=== PATIENT | female | born 1965 | race Caucasian/White ===

== ENCOUNTER → 2016-06-17 | Outpatient (CLI) | payer BC ==
--- NOTE | 2016-06-17 14:49 | XR ---
EXAMINATION TYPE: XR chest 2V DATE OF EXAM: 06/17/2016 12:08 PM COMPARISON: Prior chest x-ray January 2016 HISTORY: Shortness of breath TECHNIQUE: Frontal and lateral views of the chest are obtained. FINDINGS: There is no pleural effusion, or pneumothorax seen. The cardiac silhouette size is within normal limits. Spinal curvature present in the thoracic spine as on previous exam. Biapical pleural thickening is present. Prominent lung volumes are again noted. Question retrosternal density on the l ateral view. The osseous structures are intact. IMPRESSION: Retrosternal density could be related to airspace disease, chest CT could be performed f or increased sensitivity.
== END | disposition home or self-care (01) ==
LOC: RADXRMAIN 11:53
PROVIDERS: ATTEND Family Medicine
DX: R91.8 Other nonspecific abnormal finding of lung field (principal)
CPT/HCPCS: 71020

== ENCOUNTER → 2016-07-08 | Outpatient (CLI) | payer BC ==
--- NOTE | 2016-07-08 09:37 | CT ---
EXAMINATION TYPE: CT chest w con DATE OF EXAM: 07/08/2016 9:28 AM COMPARISON: NONE HISTORY: SOB and f/u to abnormal CXR CT DLP: 231.1 mGycm Automated exposure control for dose reduction was used. CONTRAST: CT scan of the chest is performed with IV Contrast, patient injected with 100 mL of Omnipaque 300. FINDINGS: LUNGS: Scattered areas of patchy infiltrate left upper lobe may reflect pneumonia in the appropriate clinical setting. Follow up until resolution is advised. Scattered areas of groundglass density right upper lobe and mild right upper lobe pleural thickening. No evidence of pleural effusion. MEDIASTINUM: Bilateral hilar lymph nodes measure approximately 1 cm. No evidence for greater than 1 c m mediastinal adenopathy. Calcified right paratracheal lymph node detected. Small pericardial effusio n measuring 5.2 mm. Thoracic aorta is of normal caliber. The heart is not enlarged. UPPER ABDOMEN: No significant abnormality appreciated. OTHER: No additional significant abnormality is seen. IMPRESSION: 1. Correlate for left upper lobe pneumonia. Follow-up until resolution is advised to exclude other po ssibilities. Strict clinical correlation advised. 2 mild hilar lymph node prominence is nonspecific. 3. Small pericardial effusion.
== END | disposition home or self-care (01) ==
LOC: RADCTMAIN 08:52
PROVIDERS: ATTEND Family Medicine
DX: I31.3 Pericardial effusion (noninflammatory) (principal)
CPT/HCPCS: 71260; Q9967

== ENCOUNTER → 2016-12-13 | Outpatient (CLI) | payer BC ==
--- NOTE | 2016-12-13 15:46 | XR ---
Right RIBS HISTORY: Right rib pain, pleurodynia, R07.81 Correlation to chest x-ray 06/17/2016 5 views of the right RIBS There is a spinal curvature present as on prior exam. No pneumothorax or pleural effusion. Bone payroll examiner alization is maintained. No displaced rib fracture. IMPRESSION: Scoliosis. Consider bone scan for increased sensitivity as indicated.
== END | disposition home or self-care (01) ==
LOC: RADXRMAIN 14:12
PROVIDERS: ATTEND Family Medicine
DX: M41.9 Scoliosis, unspecified (principal); R07.81 Pleurodynia

== ENCOUNTER → 2017-03-22 | Outpatient (CLI) | payer BC ==
--- NOTE | 2017-03-22 09:24 | XR ---
EXAMINATION TYPE: XR chest 2V DATE OF EXAM: 03/22/2017 COMPARISON: 06/17/2016 INDICATION: COPD TECHNIQUE: Frontal and lateral views of the chest are obtained. FINDINGS: The heart size is normal. The pulmonary vasculature is normal. Minimal anterior basilar atelectasis is likely present. Suspicious enhancement otherwise identified.. Scoliosis is through the thoracic spine IMPRESSION: 1. Mild subsegmental atelectasis suspected in the anterior lung bases. 2. Scoliosis
[2017-03-22 09:50] LABS: Basophils % (A) 0 %; CH 30.3; CHCM 31.5; Eosinophils # (A) 0.1 k/uL (0-0.7); Eosinophils % (A) 1 %; HDW 2.07; HGB 14.7 gm/dL (11.4-16.0); Luc # (Auto) 0.07; Luc % (Auto) 1; Lymphocytes % (A) 7 %; MCH 30.3 pg (25.0-35.0); MCHC 31.3 g/dL (31.0-37.0); MCV 96.6 fL (80.0-100.0); Mean Platelet Volume 6.4; Monocytes # (A) 0.3 k/uL (0-1.0); Monocytes % (A) 2 %; Neutrophils # (A) 12.4 k/uL (1.3-7.7); Neutrophils % (A) 89 %; RBC 4.86 m/uL (3.80-5.40); RDW 13.2 % (11.5-15.5); WBC 13.9 k/uL (3.8-10.6); WBC (Perox) 12.95
[2017-03-22 10:03] LABS: ALT 35 U/L (9-52); AST 28 U/L (14-36); Alkaline Phosphatase 70 U/L (38-126); Anion Gap 11 mmol/L; Blood Urea Nitrogen 15 mg/dL (7-17); Calcium 9.7 mg/dL (8.4-10.2); Carbon Dioxide 26 mmol/L (22-30); Chloride 104 mmol/L (98-107); Glucose 100 mg/dL (74-99); Non-African American GFR(MDRD) >60 (>60 ml/min/1.73 sqM); Potassium 4.2 mmol/L (3.5-5.1); Sodium 141 mmol/L (137-145); Total Bilirubin 0.2 mg/dL (0.2-1.3); Total Protein 6.8 g/dL (6.3-8.2)
== END | disposition home or self-care (01) ==
LOC: RADXRMAIN 08:47
PROVIDERS: ATTEND Family Medicine
DX: J44.1 Chronic obstructive pulmonary disease with (acute) exacerbation (principal)
CPT/HCPCS: 36415; 71020; 80053; 85025

== ENCOUNTER → 2018-01-12 | Outpatient (CLI) | payer BC ==
--- NOTE | 2018-01-12 12:37 | XR ---
Left RIBS HISTORY: Pleurodynia 4 views of the left ribs correlated to chest x-ray 03/22/2017 Patient's scoliotic curvature is noted. There is no evident displaced rib fracture, bone mineralizati on is maintained. No evident displaced fracture. IMPRESSION: Scoliosis. Consider bone scan as indicated for occult injury.
== END | disposition home or self-care (01) ==
LOC: RADXRMAIN 12:12
PROVIDERS: ATTEND Family Medicine
DX: M41.9 Scoliosis, unspecified (principal)

== ENCOUNTER → 2019-05-31 | Outpatient (CLI) | payer BC ==
[2019-05-31 10:56] LABS: Basophils % (A) 0 %; Eosinophils # (A) 0.2 k/uL (0-0.7); Eosinophils % (A) 2 %; HCT 38.3 % (34.0-46.0); HGB 12.5 gm/dL (11.4-16.0); Lymphocytes # (A) 0.9 k/uL (1.0-4.8); Lymphocytes % (A) 13 %; MCH 30.9 pg (25.0-35.0); MCHC 32.7 g/dL (31.0-37.0); MCV 94.4 fL (80.0-100.0); Mean Platelet Volume 6.7; Monocytes # (A) 0.3 k/uL (0-1.0); Monocytes % (A) 4 %; Neutrophils # (A) 5.6 k/uL (1.3-7.7); Neutrophils % (A) 79 %; Platelet Count 343 k/uL (150-450); RBC 4.05 m/uL (3.80-5.40); RDW 13.3 % (11.5-15.5); WBC 7.1 k/uL (3.8-10.6)
[2019-05-31 10:59] LABS: Total Eosinophil Count 150 #EOS/uL (150-300)
[2019-05-31 17:36] LABS: Cat Epith & Dander IgE <0.10 kU/L; Dermato. farinae IgE <0.10 kU/L; Dog Dander IgE <0.10 kU/L
[2019-05-31 17:37] LABS: Cladosporian herbarum IgE <0.10 kU/L; Cockroach IgE <0.10 kU/L
[2019-05-31 17:38] LABS: Alternaria alternata IgE <0.10 kU/L; Aspergillus fumagatus IgE <0.10 kU/L; Birch IgE <0.10 kU/L; Maple (Box Elder) IgE <0.10 kU/L
[2019-05-31 17:39] LABS: Elm IgE <0.10 kU/L; Oak IgE <0.10 kU/L
[2019-05-31 17:40] LABS: Ragweed,Common IgE <0.10 kU/L
[2019-05-31 17:41] LABS: Red Top (Bentgrass) IgE 0.33 kU/L
== END | disposition home or self-care (01) ==
LOC: LABWHC1 10:12
PROVIDERS: ATTEND Internal Medicine
DX: J45.50 Severe persistent asthma, uncomplicated (principal)
CPT/HCPCS: 36415; 82785; 85008; 85025; 86003

== ENCOUNTER → 2019-10-24 | Outpatient (CLI) | payer BC | END | disposition home or self-care (01) | LOC: LABWHC1 09:10 | PROVIDERS: ATTEND Family Medicine | DX: Z11.59 Encounter for screening for other viral diseases (principal) | CPT/HCPCS: 87635 ==

== ENCOUNTER 2023-01-22 12:54 | Emergency (ER) | payer BC, MEDICARE ==
[2023-01-22 13:25] VITALS: BP 138/80; PULSE 80; RESP 18; TEMP 98.9
--- NOTE | 2023-01-22 14:14 | ED ---
Allergic Reaction HPI - General Chief complaint: Allergic Reaction Stated complaint: R Swollen Eye Lid, poss Poison Rosalie Time Seen by Provider: 01/22/23 13:28 Source: patient, RN notes reviewed Mode of arrival: ambulatory Limitations: no limitations - History of Present Illness Initial Comments: 50-year-old female presents emergency Department from urgent care for evaluation of right eye swelling. Patient has had symptoms for over one week. Patient sh ould not is from poison rosalie states she had bilateral eyelid swelling, sores in her nose. She was placed on Keflex, prednisone. She states she's been 5 days states that the left eyelid drained out some fluid which seemed to help. Patient states her right eyelid is more swollen was sent here for further evaluation. - Related Data Home Medications Medication Instructions Recorded Confirmed Albuterol Inhaler [Ventolin Hfa 1 - 2 puff INHALATION Q6HR PRN 01/08/16 01/08/16 Inhaler] Albuterol Nebulized [Ventolin 2.5 mg INHALATION Q6H 01/08/16 01/08/16 Nebulized] Budesonide-Formot 160-4.5 Mcg 2 puff INHALATION DAILY 01/08/16 01/08/16 [Symbicort 160-4.5 Mcg Inhaler] Tiotropium 18 Mcg/Puff [Spiriva] 1 mcg INHALATION DAILY 01/08/16 01/08/16 predniSONE See Taper PO DAILY 01/08/16 01/08/16 Previous Rx's Medication Instructions Recorded Sulfamethox-Tmp 800-160Mg [Bactrim 1 each PO Q12HR #20 tab 01/22/23 Ds] Allergies Allergy/AdvReac Type Severity Reaction Status Date / Time methylprednisolone Allergy Unknown Verified 01/22/23 13:55 [From Solu-Medrol] codeine AdvReac Nausea & Verified 01/22/23 13:25 Vomiting Review of Systems ROS Statement: Those systems with pertinent positive or pertinent negative responses have been documented in the HPI. ROS Other: All systems not noted in ROS Statement are negative. Past Medical History Past Medical History: Asthma, COPD, GERD/Reflux, Respiratory Disorder History of Any Multi-Drug Resistant Organisms: None Reported Past Surgical History: Hernia Repair, Tonsillectomy, Tubal Ligation Past Anesthesia/Blood Transfusion Reactions: No Reported Reaction Past Psychological History: Anxiety Smoking Status: Never smoker Past Alcohol Use History: None Reported Past Drug Use History: None Reported General Exam Limitations: no limitations General appearance: alert, in no apparent distress Head exam: Present: atraumatic, normocephalic, normal inspection Eye exam: Present: normal appearance, PERRL, EOMI, periorbital swelling (Significant right eye swelling with erythema there is a small sore noted on the eyelid there is mild left eyelid swelling with no significant erythema), periorbital tenderness. Absent: scleral icterus, conjunctival injection Neck exam: Present: normal inspection, full ROM. Absent: tenderness, meningismus, lymphadenopathy Respiratory exam: Present: normal lung sounds bilaterally. Absent: respiratory distress, wheezes, rales, rhonchi, stridor Cardiovascular Exam: Present: regular rate, normal rhythm, normal heart sounds. Absent: systolic murmur, diastolic murmur, rubs, gallop, clicks Course Vital Signs 01/22/23 13:20 Temperature 98.9 F Pulse Rate 80 Respiratory 18 Rate Blood Pressure 138/80 O2 Sat by Pulse 99 Oximetry Medical Decision Making - Medical Decision Making Was pt. sent in by a medical professional or institution (Dr. PA, EMERGENCY MEDICINE, urgent care, hospital, or correction...) When possible be specific @ -No Did you speak to anyone other than the patient for history (EMS, parent, family, police, friend...)? What history was obtained from this source @ -No Did you review nursing and triage notes (agree or disagree)? Why? @ -I reviewed and agree with nursing and triage notes Were old charts reviewed (outside hosp., previous admission, EMS record, old EKG, old radiological studies, urgent care reports/EKG's, correction records)? Report findings @ -No old charts were reviewed Differential Diagnosis (chest pain, altered mental status, abdominal pain women, abdominal pain men, vaginal bleeding, weakness, fever, dyspnea, syncope, headache, dizziness, GI bleed, back pain, seizure, CVA, palpatations, mental health, musculoskeletal)? @ -Periorbital abscess, cellulitis EKG interpreted by me (3pts min.). @ -None X-rays interpreted by me (1pt min.). @ -None done CT interpreted by me (1pt min.). @ -CT shows loculated abscess of the right periorbital region U/S interpreted by me (1pt. min.). @ -None done What testing was considered but not performed or refused? (CT, X-rays, U/S, labs)? Why? @ -None What meds were considered but not given or refused? Why? @ -None Did you discuss the management of the patient with other professionals (professionals i.e. , PA, EMERGENCY MEDICINE, lab, RT, psych nurse, social work supervisor, boat person, teacher, parcel post officer, case hardener)? Give summary @ -No Was smoking cessation discussed for >3mins.? @ -No Was critical care preformed (if so, how long)? @ -No Were there social determinants of health that impacted care today? How? (Homelessness, low income, unemployed, alcoholism, drug addiction, trans portation, low edu. Level, literacy, decrease access to med. care, prison, rehab)? @ -No Was there de-escalation of care discussed even if they declined (Discuss DNR or withdrawal of care, Hospice)? DNR status @ -No What co-morbidities impacted this encounter? (DM, HTN, Smoking, COPD, CAD, Cancer, CVA, ARF, Chemo, Hep., AIDS, mental health diagnosis, sleep apnea, morbid obesity)? @ -None Was patient admitted / discharged? Hospital course, mention meds given and route, prescriptions, significant lab abnormalities, going to OR and other pertinent info. @ -Discharge patient had aspiration of right eyelid abscess. Patient was offered admission given leukocytosis and failure of outpatient treatment patient declined patient will be discharged with Bactrim return parameters were discussed. Undiagnosed new problem with uncertain prognosis? @ -No Drug Therapy requiring intensive monitoring for toxicity (Heparin, Nitro, Insulin, Cardizem)? @ -No Were any procedures done? @ -No Diagnosis/symptom? @ -Periorbital abscess Acute, or Chronic, or Acute on Chronic? @ -Acute Uncomplicated (without systemic symptoms) or Complicated (systemic symptoms)? @ -[Uncomplicated Side effects of treatment? @ -No Exacerbation, Progression, or Severe Exacerbation? @ -No Poses a threat to life or bodily function? How? (Chest pain, USA, MS, pneumonia, PE, COPD, DKA, ARF, appy, cholecystitis, CVA, Diverticulitis, Homicidal, Suicidal, threat to staff... and all critical care pts) @ -No - Lab Data Result diagrams: 01/22/23 13:46 01/22/23 13:46 Lab Results 01/22/23 01/22/23 01/22/23 Range/Units 13:46 13:46 13:52 WBC 17.1 H (3.8-10.6) k/uL RBC 4.51 (3.80-5.40) m/uL Hgb 13.5 (11.4-16.0) gm/dL Hct 41.6 (34.0-46.0) % MCV 92.3 (80.0-100.0) fL MCH 29.9 (25.0-35.0) pg MCHC 32.4 (31.0-37.0) g/dL RDW 13.4 (11.5-15.5) % Plt Count 397 (150-450) k/uL MPV 7.7 Neutrophils % 94 % Lymphocytes % 3 % Monocytes % 2 % Eosinophils % 0 % Basophils % 0 % Neutrophils # 16.0 H (1.3-7.7) k/uL Lymphocytes # 0.6 L (1.0-4.8) k/uL Monocytes # 0.4 (0-1.0) k/uL Eosinophils # 0.1 (0-0.7) k/uL Basophils # 0.0 (0-0.2) k/uL Sodium 139 (137-145) mmol/L Potassium 4.3 (3.5-5.1) mmol/L Chloride 102 (98-107) mmol/L Carbon Dioxide 28 (22-30) mmol/L Anion Gap 9 mmol/L BUN 10 (7-17) mg/dL Creatinine 0.55 (0.52-1.04) mg/dL Est GFR (CKD-EPI)AfAm >90 (>60 ml/min/1.73 sqM) Est GFR (CKD-EPI)NonAf >90 (>60 ml/min/1.73 sqM) Glucose 132 H (74-99) mg/dL Plasma Lactic Acid Augustus 2.4 H* (0.7-2.0) mmol/L Calcium 9.5 (8.4-10.2) mg/dL Total Bilirubin 0.4 (0.2-1.3) mg/dL AST 22 (14-36) U/L ALT 24 (4-34) U/L Alkaline Phosphatase 84 (38-126) U/L Total Protein 7.1 (6.3-8.2) g/dL Albumin 4.3 (3.5-5.0) g/dL Disposition Clinical Impression: Abscess of right periorbital region Disposition: HOME SELF-CARE Condition: Stable Instructions (If sedation given, give patient instructions): Abscess Incision and Drainage (ED) Additional Instructions: Please return to the Emergency Department if symptoms worsen or any other concerns. Prescriptions: Sulfamethox-Tmp 800-160Mg [Bactrim Ds] 1 each PO Q12HR #20 tab Is patient prescribed a controlled substance at d/c from ED?: No Referrals: Nikko English DO [Primary Care Provider] - 1-2 days Arnel Collins MD [STAFF PHYSICIAN] - 1-2 days Time of Disposition: 17:20
[2023-01-22 14:57] LABS: Basophils % (A) 0 %; Eosinophils # (A) 0.1 k/uL (0-0.7); Eosinophils % (A) 0 %; HCT 41.6 % (34.0-46.0); HGB 13.5 gm/dL (11.4-16.0); Lymphocytes # (A) 0.6 k/uL (1.0-4.8); Lymphocytes % (A) 3 %; MCH 29.9 pg (25.0-35.0); MCHC 32.4 g/dL (31.0-37.0); MCV 92.3 fL (80.0-100.0); Mean Platelet Volume 7.7; Monocytes # (A) 0.4 k/uL (0-1.0); Monocytes % (A) 2 %; Neutrophils % (A) 94 %; Platelet Count 397 k/uL (150-450); RBC 4.51 m/uL (3.80-5.40); RDW 13.4 % (11.5-15.5); WBC 17.1 k/uL (3.8-10.6)
--- NOTE | 2023-01-22 15:21 | CT ---
EXAMINATION TYPE: CT orbits w con CT DLP: 317.5 mGycm, Automated exposure control for dose reduction was used. DATE OF EXAM: 01/22/2023 2:31 PM COMPARISON: None. CLINICAL INDICATION:Female, 57 years old with history of facial swelling; PHH, Facial swelling over e yes. Possible exposure to poison chey. TECHNIQUE: Orbits: Axial CT with coronal and sagittal reformats through the orbits. No IV or oral contrast was u tilized. Findings: Orbital Contents: * Globes: Normal. * Preseptal Tissues: Loculated fluid collection measuring 31 by a 23 x 16 mm * Intraconal Structures: Normal. * Extraconal Structures and Lacrimal Glands: Normal. * Orbital [place]: Normal. Sella Turcica and Cavernous Sinuses: The sella turcica and cavernous sinus regions are intact and sym metric. Visualized Brain Parenchyma: Normal. Paranasal Sinuses and Surrounding Structures: The paranasal sinuses are intact. The mastoid air cells and skull base is intact. Other: Soft tissues are within normal limits. IMPRESSION: Preseptal loculated fluid collection near the lateral superior aspect of the right globe. Correlate f or infectious/inflammatory process consideration for poison chey as provided in history recommended. T he globe is relatively unremarkable..
[2023-01-22 15:30] LABS: ALT 24 U/L (4-34); AST 22 U/L (14-36); African American GFR (CKD) >90 (>60 ml/min/1.73 sqM); Albumin 4.3 g/dL (3.5-5.0); Alkaline Phosphatase 84 U/L (38-126); Anion Gap 9 mmol/L; Blood Urea Nitrogen 10 mg/dL (7-17); Calcium 9.5 mg/dL (8.4-10.2); Carbon Dioxide 28 mmol/L (22-30); Chloride 102 mmol/L (98-107); Glucose 132 mg/dL (74-99); Non-African American GFR(CKD) >90 (>60 ml/min/1.73 sqM); Potassium 4.3 mmol/L (3.5-5.1); Sodium 139 mmol/L (137-145); Total Bilirubin 0.4 mg/dL (0.2-1.3); Total Protein 7.1 g/dL (6.3-8.2)
== END 2023-01-22 17:29 | disposition home or self-care (01) ==
LOC: EC 12:54
DX: H05.011 Cellulitis of right orbit (principal); J44.9 Chronic obstructive pulmonary disease, unspecified; F41.9 Anxiety disorder, unspecified; Z79.51 Long term (current) use of inhaled steroids; Z79.52 Long term (current) use of systemic steroids; Z88.5 Allergy status to narcotic agent; Z88.8 Allergy status to other drugs, medicaments and biological substances
CPT/HCPCS: 36415; 70481; 80053; 83605; 85025; 87070; 87205; 99284

== ENCOUNTER → 2024-12-13 | Day surgery (SDC) | payer BC, MEDICARE ==
[2024-12-11 12:02] VITALS: BMI 29.1
[~2024-12-13] MED LIST: MIDAZOLAM 2 MG/2 ML VIAL ONE; PHENYLEPHRINE-0.9% NACL SYG 1,000 MCG/10 ML SYRINGE ONE; PROPOFOL 10 MG/ML 20 ML VIAL IV ONE; SUCCINYLCHOLINE CHLORIDE 200 MG/10 ML VIAL IV ONE; ePHEDrine 50 MG/ML 1 ML VIAL ONE; fentaNYL (PF) 50 MCG/ML 2 ML AMP ONE; metroNIDAZOLE-NS PMX 500 MG in SALINE 1 100ML.BAG IVPB PRN
[2024-12-13] MEDS: IV FLUID CONTINUATION 1,000 ML IV ONE (06:40)
[2024-12-13] MEDS: MELOXICAM 7.5 MG TAB PO PRN (07:03)
[2024-12-13] MEDS: ACETAMINOPHEN TAB 500 MG TAB PO PRN (07:03)
[2024-12-13] MEDS: ONDANSETRON 4 MG/2 ML VIAL IVP PRN (07:03)
[2024-12-13] MEDS: LACTATED RINGERS 1,000 ML BAG IV STA (07:03)
[2024-12-13] MEDS: HEPARIN SODIUM,PORCINE 5,000 UNIT/ML 1 ML VIAL SQ PRN (07:04)
--- NOTE | 2024-12-13 07:25 | P.GSHP ---
History of Present Illness H&P Date: 12/13/24 CHIEF COMPLAINT: Scalp tumor HISTORY OF PRESENT ILLNESS: The patient is a 59 year-old female with over 6 month history of growing scalp mass x 2 in the crown of her head. She presents today for surgical excision. PAST MEDICAL HISTORY: Please see list. PAST SURGICAL HISTORY: Please see list. MEDICATIONS: Please see list. ALLERGIES: Please see list. SOCIAL HISTORY: No illicit drug use FAMILY HISTORY: No reports of Crohn disease or ulcerative colitis. REVIEW OF ORGAN SYSTEMS: CONSTITUTIONAL: No reports of fevers or chills. GI: Denies any blood in stools or constipation. PHYSICAL EXAM: VITAL SIGNS: Stable SKIN: Well perfused. Good skin turgor. 2 cm and 1cm lesion overlying the occiput of the scalp. Musculoskeletal: No clubbing cyanosis or edema GENERAL: Well developed and in no acute distress. Pleasant. HEENT: No sclera icterus. Extraocular movements grossly intact. Moist buccal mucosa. Head is atraumatic, normocephalic. Hears conversational speech. No nasal drainage. NECK: Supple without lymphadenopathy. No JV distention. CHEST: Non-labored respirations and equal bilateral excursions. CARDIOVASCULAR: Regular rate and rhythm. Palpable 2+ radial pulses. ABDOMEN: Soft. Non-tender. Nondistended. NEUROLOGIC: No focal or lateralizing signs. PSYCH: Appropriate affect. Alert and oriented to person, place and time. ASSESSMENT: 1. Occipital scalp tumor x 2, over 2 cm and 1 cm PLAN: 1. Will proceed of excision of scalp tumor 2. DVT prophylaxis. 3. Antibiotic prophylaxis. 4. Time of recovery, at least one week. 5. Benefits and risks including numbness, decreased sensation, pain, cosmetic deformity were reviewed Past Medical History Past Medical History: Asthma, COPD, GERD/Reflux Additional Past Medical History / Comment(s): Varicose veins. History of Any Multi-Drug Resistant Organisms: MRSA Date of last positivie culture/infection: 01/22/23 MDRO Source:: Face Past Surgical History: Hernia Repair, Tonsillectomy, Tubal Ligation Additional Past Surgical History / Comment(s): Colonoscopy. Past Anesthesia/Blood Transfusion Reactions: No Reported Reaction Smoking Status: Never smoker - Past Family History Mother Family Medical History: Cancer Additional Family Medical History / Comment(s): Cervical cancer. Sister(s) Family Medical History: Cancer Additional Family Medical History / Comment(s): Breast cancer. Medications and Allergies Home Medications Medication Instructions Recorded Confirmed Type Albuterol Inhaler [Ventolin Hfa 1 - 2 puff INHALATION Q6HR PRN 01/08/16 12/13/24 History Inhaler] Advair (Unknown Dose) 1 puff INHALATION BID 12/11/24 12/13/24 History Sertraline [Zoloft] 100 mg PO HS 12/11/24 12/13/24 History Allergies Allergy/AdvReac Type Severity Reaction Status Date / Time methylprednisolone Allergy Unknown Verified 12/13/24 06:48 [From Solu-Medrol] codeine AdvReac Nausea & Verified 12/13/24 06:48 Vomiting
[2024-12-13] MEDS: LIDOCAINE 1%-EPI 1:100,000 20 ML VIAL SQ ONE (08:13)
[2024-12-13] MEDS: BACITRACIN ZINC 500 UNIT/GM OINT 28.4 GM TUBE TOPICAL ONE ×2 (08:35→08:45)
[2024-12-13] MEDS: LACTATED RINGERS 1,000 ML IV ONE (08:53)
--- NOTE | 2024-12-13 09:05 | P.OP ---
Date of Procedure: 12/13/24 Description of Procedure: SURGEON: ARIANA BUTTERFIELD MD PREOPERATIVE DIAGNOSES: 1. Left anterior occipital scalp tumor, 2 cm 2. Left posterior occipital scalp tumor, 1 cm 3. Depressive disorder 4. Asthma 5. Chronic obstructive pulmonary disease 6. Generalized anxiety disorder 7. Gastroesophageal reflux disease POSTOPERATIVE DIAGNOSES: 1. Left anterior occipital scalp tumor, 2 cm 2. Left posterior occipital scalp tumor, 1 cm 3. Depressive disorder 4. Asthma 5. Chronic obstructive pulmonary disease 6. Generalized anxiety disorder 7. Gastroesophageal reflux disease PROCEDURES PERFORMED: 1. Excision of left anterior occipital scalp tumor, 2 cm, subcutaneous with simple closure, 3-cm 2. Excision of left posterior occipital scalp tumor, 1 cm subcutaneous with simple closure, 2-cm Anesthesia: GETA, local Estimated Blood Loss (ml): 10 Pathology: other (scalp mass; anterior and posterior) Condition: stable Disposition: same day COMPLICATIONS: None. Operative Findings: 1. Excision of deep subcutaneous anterior and posterior scalp tumor INDICATIONS: The patient is a 59-year-old female who presents with scalp tumors x 2. Benefits and risks of surgical intervention were described including bleeding, infection. Informed consent was obtained. DESCRIPTION OR PROCEDURE: In the preoperative area, the area of concern was marked with indelible marker. Patient was brought into the operating room. After general induction, he was positioned in supine position. The scalp was prepped and draped in a standard sterile fashion. Timeout protocol was confirmed with the surgical team regarding the patient's name, procedure to be performed including preoperative medications. DVT prophylaxis was confirmed. A field block was placed of the left occipital anterior and posterior scalp tumors. A transverse elliptical incision using #15 blade was made along the marking into the deep subcutaneous tissue of the posterior scalp tumor. Electro- Bovie cautery was used to incise to the subcutaneous tissue with dissection and elevation of the mass. Final running suture of 4-0 Prolene was placed to completely close the dermis. Attention was brought to the anterior occipital tumor. A field block was placed of the left forehead tumor along the hair line. A longitudinal elliptical incision using #15 blade was made along the marking into the deep subcutaneous tissue. Electro-Bovie cautery was used to incise to the subcutaneous tissue with dissection and elevation of the mass. Final running suture of 4-0 Prolene was placed to completely close the dermis. The skin was cleansed with hydrogen peroxide followed by bacitracin ointment along the closure. At the end of the procedure, needle, sponge, and instrument count was verified correct by domestic technician. The patient tolerated the procedure well. Plan - Discharge Summary Discharge Rx Participant: No New Discharge Prescriptions: New Bacitracin/Polymyx Oint [Polysporin Oint] 1 applic TOPICAL BID #30 gm Ibuprofen [Motrin] 600 mg PO Q8HR PRN #30 tab PRN Reason: Pain Acetaminophen Tab [Tylenol Tab] 1,000 mg PO Q6HR PRN #30 tablet PRN Reason: Pain Continue Albuterol Inhaler [Ventolin Hfa Inhaler] 1 - 2 puff INHALATION Q6HR PRN PRN Reason: Dyspnea Advair (Unknown Dose) 1 puff INHALATION BID Sertraline [Zoloft] 100 mg PO HS Discharge Medication List Albuterol Inhaler [Ventolin Hfa Inhaler] 1 - 2 puff INHALATION Q6HR PRN 01/08/16 [History] Advair (Unknown Dose) 1 puff INHALATION BID 12/11/24 [History] Sertraline [Zoloft] 100 mg PO HS 12/11/24 [History] Acetaminophen Tab [Tylenol Tab] 1,000 mg PO Q6HR PRN #30 tablet 12/13/24 [Rx] Bacitracin/Polymyx Oint [Polysporin Oint] 1 applic TOPICAL BID #30 gm 12/13/24 [Rx] Ibuprofen [Motrin] 600 mg PO Q8HR PRN #30 tab 12/13/24 [Rx] Follow up Appointment(s)/Referral(s): Ariana Butterfield MD [STAFF PHYSICIAN] - 12/24/24 1:30 pm Patient Instructions/Handouts: General Mass Excision (DC) Activity/Diet/Wound Care/Special Instructions: Use ice along the dressing to minimize bruising. May gently wash around the dressing with soap and water. Please take Tylenol, Aleve, or ibuprofen scheduled for next 2-3 days. Apply bacitracin ointment twice a day. May wash hair in 2 days, 12/15/2024 Discharge Disposition: HOME SELF-CARE
[2024-12-13 09:17] VITALS: TEMP 96.8
[2024-12-13 10:05] VITALS: RESP 16
[2024-12-13 10:39] VITALS: BP 114/86; PULSE 85
== END | disposition home or self-care (01) ==
LOC: OR 06:05
PROVIDERS: ATTEND Surgery Plastic and Reconstructive Surgery
DX: D36.11 Benign neoplasm of peripheral nerves and autonomic nervous system of face, head, and neck (principal); L72.11 Pilar cyst; F32.A Depression, unspecified; J44.9 Chronic obstructive pulmonary disease, unspecified; F41.1 Generalized anxiety disorder; K21.9 Gastro-esophageal reflux disease without esophagitis; F41.9 Anxiety disorder, unspecified; I83.90 Asymptomatic varicose veins of unspecified lower extremity; Z79.899 Other long term (current) drug therapy; Z79.51 Long term (current) use of inhaled steroids; Z98.51 Tubal ligation status; Z90.89 Acquired absence of other organs; Z98.890 Other specified postprocedural states; Z88.5 Allergy status to narcotic agent; Z88.8 Allergy status to other drugs, medicaments and biological substances
CPT/HCPCS: 11422; 21011; 88304; 88305; 88342; J2250; J0330; J1644; J0690; J2405; J3010; J2704; J2371